=== PATIENT | female | born 1995 | race Caucasian/White ===

== ENCOUNTER 2020-05-15 13:33 | Emergency (ER) | payer MEDICAID, OTHER ==
[2020-05-15] MEDS ORDERED: Metoclopramide 10 MG/2 ML SDV IVPUSH ONE (14:45)
[2020-05-15] MEDS ORDERED: diphenhydrAMINE 50 MG/ML SDV IVPUSH ONE (14:45)
[2020-05-15] MEDS ORDERED: Dextrose 5%-Lactated Ringers 1,000 ML IV SCH (14:45)
--- NOTE | 2020-05-15 14:55 | EDM.PDOC ---
ED HPI GENERAL MEDICAL PROBLEM - General Chief Complaint: Gastrointestinal Problem Stated Complaint: ABD PAIN, VOMITING AND NAUSEA SENT BY [facility] Time Seen by Provider: 05/15/20 14:44 Source of Information: Reports: Patient History Limitations: Reports: No Limitations - History of Present Illness INITIAL COMMENTS - FREE TEXT/NARRATIVE: 24-year-old female presents to the ED for evaluation of intractable nausea and vomiting. Patient reports that she contracted COVID-19 illness around April 02. 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 She perceives that she caught it from one of the parents of students. Subsequently she has had a lot of headaches post Covid illness. She had severe nausea all day yesterday associated with a bad headache. She did keep down some food yesterday and some fluids. She had normal bowel movements for her with her Crohn's disease she usually has 6 stools per day usually first thing in the morning and with every meal and usually before bed. She started vomiting this morning primarily of recently eaten food and then biliary emesis. Patient took Phenergan dissolvable tablets all day yesterday for nausea relief. She went to the walk-in clinic at [place] this morning and was given Zofran sublingual which failed to control vomiting either. She was therefore sent to the ED for further evaluation and IV fluid replacement. Patient reports she has had no diarrhea stools today. There is some suggestion that she had serum ketones on her urine dipstick but I do not have confirmation of this. Labs done at the clinic revealed a mildly elevated white count at 12.3. Mild left shift with 8.6% neutrophils. Hemoglobin 15.4 with hematocrit of 45.4 and platelet count of 369,000. Chemistry revealed a normal glucose at 118 BUN of 10 and a creatinine of 0.93. BUN creatinine ratio was normal at 10.8. Sodium 141 with potassium of 4.1 chloride 105 with a bicarb of 23. Anion gap is minimally elevated at 17. Calcium is 10.1 mildly elevated. Total protein elevated at 8.8 likely due to hemoconcentration. Albumin fraction also elevated at 4.9 again likely due to hemoconcentration. Liver function normal. Due to her history of Crohn's disease she had a 2 view abdomen performed in radiology reports normal bowel gas pattern with no signs of obstruction. She states she had some chills yesterday but no definite fever. Denies cough or sputum production. She thought there might have been a small amount of blood and mucus that she vomited this morning x1. Continue to have dry heaves well seen in the ED. Onset: Sudden Onset Date: 05/14/20 (Ports she was nauseated since she woke up yesterday morning. She states nothing that she ate on precipitated any illness.) Onset Time: 10:30 (Has been vomiting nonstop since 1030 hrs. this morning.) Duration: Hour(s):, Getting Worse Location: Reports: Abdomen (Intractable nausea and vomiting of bilious emesis.) Quality: Reports: Other (Mild periumbilical cramping pain) Severity: Moderate Improves with: Reports: None (Zofran sublingual as well as dissolvable Phenergan tablets did not help with nausea vomiting today.) Worsens with: Reports: Other (To eat or drink anything.) Context: Reports: Other (Spontaneous occurrence). Denies: Activity, Exercise, Lifting, Sick Contact, Trauma Associated Symptoms: Reports: Fever/Chills ( believes are migraine type headaches since she had COVID-19 illness. She never had that before COVID-19 illness.), Headaches ( Chills but no definite fever.), Loss of Appetite, Malaise, Nausea/Vomiting (See history of present illness), Other (Been getting a lot of severe headaches which she). Denies: Confusion, Chest Pain, Cough, cough w sputum Treatments GILL BOX FIXER: Reports: Other (see below) (Duarte 4 mg sublingual.) Abdomen Pain Score (Numeric/FACES): 5 - Related Data Allergies Allergy/AdvReac Type Severity Reaction Status Date / Time bacitracin Allergy Cannot Verified 05/15/20 13:47 [From Neosporin Remember ([id number])] Latex, Natural Rubber Allergy Hives Verified 05/15/20 13:47 neomycin Allergy Cannot Verified 05/15/20 13:47 [From Neosporin Remember ([id number])] polymyxin B Allergy Cannot Verified 05/15/20 13:47 [From Neosporin Remember ([id number])] Home Meds: Home Meds Albuterol Sulfate [Albuterol Sulfate Hfa] 2 puff INH ASDIRECTED PRN 05/15/20 [History] Ondansetron [Zofran] 4 mg BUCCAL Q6H PRN #10 tab 05/15/20 [Rx] Promethazine [Phenergan] 25 mg PO ASDIRECTED 05/15/20 [History] Spironolactone [Aldactone] 50 mg PO DAILY 05/15/20 [History] metFORMIN [Glucophage XR] 250 mg PO BID 05/15/20 [History] Past Medical History HEENT History: Reports: Impaired Vision Respiratory History: Reports: Asthma Gastrointestinal History: Reports: Chronic Diarrhea (And usually 2 or 3 bowel months first thing in the morning and sometimes just before bed culminating in about 6 bowel movements a day without blood. Stools are almost always diarrhea or pasty. Sometimes just mucousy. Can [facility] to Crohn's disease diagnosed at age 9. She was treated with remittive medication up until age 16 and has been off medication since that time. Typically she has intestinal hurry with a bowel movement within 30 to 40 minutes of eating), Inflammatory Bowel Disease (Chronic disease diagnosed at age 9. She is not sure what part of her bowel has been affected but presumes terminal ileum. She is unsure if she has any disease in her colon. She has not had a colonoscopy since age 16. Is due to see a outbound telemarketing representative tomorrow in [place].) COATER BRAKE LININGS History: Reports: Polycystic Ovaries, Other (See Below) : 0 Other COATER BRAKE LININGS History: poly cystic ovarian syndrome--hirsutism. Been on Metformin and Aldactone for many years. 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 Denies: Fever HEENT: Reports: No Symptoms Respiratory: Reports: No Symptoms Cardiovascular: Reports: No Symptoms Endocrine: Reports: Fatigue GI/Abdominal: Reports: Abdominal Pain (Treatment periumbilical cramping pain.), Diarrhea (Chronic diarrhea secondary to Crohn's disease usually on average 6 bowel movements per day of semiformed stool to diarrhea stool. Intestinal hurry usually has a bowel movement within 30 to 40 minutes of eating the meal. She is also lactose intolerant.), Nausea, Vomiting (Intractable nausea and vomiting since this morning. Nausea all day yesterday preceded vomiting episode.) : Reports: Other (Urine is dark in color.) Musculoskeletal: Reports: No Symptoms Skin: Reports: No Symptoms Neurological: Reports: Dizziness, Headache (Little lightheaded upon standing. Has been getting a lot of migraine type headaches since COVID-19 illness April 02. Previously had no previous history of migraine headaches.) Psychiatric: Reports: No Symptoms Hematologic/Lymphatic: Reports: No Symptoms Immunologic: Reports: No Symptoms ED EXAM, GI/ABD - Physical Exam Exam: See Below Exam Limited By: No Limitations General Appearance: Alert, WD/WN, Other (Recurrent dry heaving well seen in the ED.) Eyes: Bilateral: Normal Appearance (No scleral icterus or blepharal pallor evident.) Throat/Mouth: Other (Tongue is mildly dry.) Head: Atraumatic, Normocephalic Neck: Normal Inspection, Supple, Non-Tender, Full Range of Motion. No: Lymphadenopathy (L), Lymphadenopathy (R), Thyromegaly Respiratory/Chest: No Respiratory Distress, Lungs Clear, Normal Breath Sounds, No Accessory Muscle Use Cardiovascular: Normal Peripheral Pulses, Regular Rate, Rhythm, No Edema, No Gallop, No Murmur, No Rub GI/Abdominal Exam: Soft, No Organomegaly, No Abnormal Bruit, No Mass, Pelvis Stable, Tender (Mild tenderness in the epigastrium only presumably from vomiting. No peritoneal signs.), Abnormal Bowel Sounds (Very few bowel sounds appreciated on abdominal examination.). No: Guarding, Rigid, Rebound Back Exam: Normal Inspection, Full Range of Motion. No: CVA Tenderness (L), CVA Tenderness (R) Extremities: Normal Inspection, Normal Range of Motion, Non-Tender, No Pedal Edema Neurological: Alert, Oriented, CN II-XII Intact, Normal Cognition Psychiatric: Normal Affect, Normal Mood Skin Exam: Warm, Dry, Intact, Normal Color, No Rash Course - Vital Signs Last Recorded V/S: Last Vital Signs Temp 36.3 C 05/15/20 18:05 Pulse 94 05/15/20 18:05 Resp 18 05/15/20 18:05 BP 117/78 05/15/20 18:05 Pulse Ox 99 05/15/20 18:05 - Orders/Labs/Meds Orders: 24-year-old female with history of chronic Crohn's disease diagnosed age 9 presents to the ED due to nausea all day yesterday with intractable nausea and vomiting developing this morning. She took a lot of Phenergan dissolvable tablets yesterday for nausea relief. She did keep down some food yesterday. Nothing is stay down today. She believes there might have been a small amount of blood and mucus that she had with one of her indices this morning otherwise they were bilious. She has not had any bowel movements today which is atypical for her as usually she has 2 or 3 loose stools every morning due to Crohn's disease. No blood per rectum. No history of abdominal or perianal fistula development. She claims she had some chills. She was worked up at the [facility] walk-in clinic and had a slightly elevated white count with a mild minimal left shift. Electrolytes were normal. Anion gap was slightly elevated at 17. Plan she will be given IV fluids D5 Ringer's lactate at open. Reglan 10 mg IV with Benadryl 25 mg IV to prevent dystonic reaction. I will have further labs done a CRP, lipase, serum ketones. Labs: Laboratory Tests 05/15/20 05/15/20 05/15/20 Range/Units 14:10 14:10 14:10 D-Dimer, Quantitative 0.34 (0.19-0.50) mg/L Magnesium 1.9 (1.8-2.4) mg/dl Ferritin 100 (8-252) ng/ml C-Reactive Protein 0.7 (<1.0) mg/dL Lipase 78 (73-393) U/L HCG, Qual (NEGATIVE) Urine Color (Yellow) Urine Appearance (Clear) Urine pH (5.0-8.0) Ur Specific [place] (1.005-1.030) Urine Protein (Negative) Urine Glucose (UA) (Negative) Urine Ketones (Negative) Urine Occult Blood (Negative) Urine Nitrite (Negative) Urine Bilirubin (Negative) Urine Urobilinogen (0.2-1.0) Ur Leukocyte Esterase (Negative) Urine RBC (0-5) /hpf Urine WBC (0-5) /hpf Ur Squamous Epith Cells (0-5) /hpf Urine Bacteria (FEW) /hpf Urine Mucus (FEW) /hpf Ketones (0.0-0.3) mM 05/15/20 05/15/20 05/15/20 Range/Units 14:10 14:10 16:06 D-Dimer, Quantitative (0.19-0.50) mg/L Magnesium (1.8-2.4) mg/dl Ferritin (8-252) ng/ml C-Reactive Protein (<1.0) mg/dL Lipase (73-393) U/L HCG, Qual Negative (NEGATIVE) Urine Color Yellow (Yellow) Urine Appearance Clear (Clear) Urine pH 6.0 (5.0-8.0) Ur Specific [place] 1.015 (1.005-1.030) Urine Protein Negative (Negative) Urine Glucose (UA) Negative (Negative) Urine Ketones Negative (Negative) Urine Occult Blood Negative (Negative) Urine Nitrite Negative (Negative) Urine Bilirubin Negative (Negative) Urine Urobilinogen 0.2 (0.2-1.0) Ur Leukocyte Esterase 1+ H (Negative) Urine RBC 0-5 (0-5) /hpf Urine WBC 0-5 (0-5) /hpf Ur Squamous Epith Cells 0-5 (0-5) /hpf Urine Bacteria Moderate H (FEW) /hpf Urine Mucus Few (FEW) /hpf Ketones 0.30 (0.0-0.3) mM Meds: Medications Discontinued Medications Generic Name Dose Route Start Last Admin Trade Name Freq PRN Reason Stop Dose Admin Diphenhydramine HCl 25 mg 05/15/20 14:45 05/15/20 15:10 Benadryl IVPUSH 05/15/20 14:46 25 mg ONETIME ONE Administration Dextrose/Lactated Ringer's 1,000 mls @ 999 mls/hr 05/15/20 14:45 05/15/20 15:12 Dextrose 5%-Lactated Ringers IV 999 mls/hr ASDIRECTED KIRA Administration Metoclopramide HCl 10 mg 05/15/20 14:45 05/15/20 15:07 Reglan IVPUSH 05/15/20 14:46 10 mg ONETIME ONE Administration - Radiology Interpretation Free Text/Narrative:: 24-year-old female presents to the ED at the request of [facility] walk-in clinic physician. She presented there with a history of diffuse persistent nausea all day yesterday controlled with sublingual Phenergan tablets. However this morning in spite of taking Phenergan sublingual and Zofran at the clinic she had intractable nausea and vomiting for over 4 hours. She was therefore sent to the ED for further evaluation and management. She has a history of Crohn's disease with no recent GI follow-up. She is scheduled for gastroenterology follow-up tomorrow in [place]. She is post COVID-19 nonetheless April 02. - Re-Assessments/Exams Free Text/Narrative Re-Assessment/Exam: 05/15/20 15:42 D-dimer is normal at 0.34. Magnesium normal at 1.9 C-reactive protein 0.7 .Lipase is normal at 78.Serum Ferritin is 100. 05/15/20 16:54 Ketones came back at upper limits of normal at 0.30. D-dimer is 0.34. 05/15/20 17:34 Patient has been tolerating ice water with no further nausea or vomiting. She will therefore be discharged to home. She has Phenergan dissolvable tablets at home. I will send her home with Zofran 4 mg sublingual's as well to be used if needed for further nausea or vomiting. It appears that she has a viral gastritis. Departure - Departure Time of Disposition: 17:34 Disposition: Home, Self-Care 01 Condition: Fair Clinical Impression: Nausea and vomiting in adult, Viral gastritis - Discharge Information *PRESCRIPTION DRUG MONITORING PROGRAM REVIEWED*: Not Applicable *COPY OF PRESCRIPTION DRUG MONITORING REPORT IN PATIENT GERMAINE: Not Applicable Prescriptions: Ondansetron [Zofran] 4 mg BUCCAL Q6H PRN #10 tab PRN Reason: nausea or vomiting Instructions: Nausea and Vomiting, Adult Referrals: Rashad Botello MD [Primary Care Provider] - Forms: ED Department Discharge Additional Instructions: Evaluation in the emergency room today in regards to nausea that started yesterday but was kept under control with Phenergan sublingual tablets. Unfortunately breakthrough nausea and vomiting occurred this morning and failed to respond to sublingual Phenergan or Zofran. Evaluation in the emergency room does not show any problems related to COVID-19 illness that you had in March. Certainly no signs of blood clots in the lungs or evidence of pancreatitis to cause nausea vomiting. You received a liter of IV fluids to provide rehydration and medication Reglan 10 mg IV. Suggest continued use of Phenergan dissolvable tablets 25 mg sublingual every 6 hours for nausea relief or Zofran 4 mg every 4 hours as needed for nausea relief. You should not take both at the same time as they can cause something called a dystonic reaction which makes you feel very restless and uneasy. If this occurred Benadryl 50 mg by mouth would take away that side effect. Return to medical care if nausea vomiting continues over the next 12 hours or you fail to improve. Sepsis Event Note (ED) - Evaluation Sepsis Screening Result: No Definite Risk - Focused Exam Vital Signs: Vital Signs Temp Pulse Resp BP Pulse Ox 05/15/20 18:05 36.3 C 94 18 117/78 99 05/15/20 13:51 36.7 C 113 H 13 134/97 H 98
== END 2020-05-15 18:18 | disposition home or self-care (01) ==
LOC: JD.ED 13:33
DX: A08.4 Viral intestinal infection, unspecified (principal); R11.2 Nausea with vomiting, unspecified; Z88.8 Allergy status to other drugs, medicaments and biological substances; Z91.040 Latex allergy status
CPT/HCPCS: 36415; 81001; 82009; 82728; 83690; 83735; 84703; 85379; 86140; 96374; 96375; 99284; J1200; J2765; J7121

== ENCOUNTER 2020-09-08 01:14 | Emergency (ER) | payer OTHER ==
[2020-09-08] MEDS ORDERED: Albuterol/Ipratropium 3.0-0.5 MG/3 ML Neb Soln NEB ONE (01:34)
[2020-09-08] MEDS ORDERED: predniSONE 20 MG Tab PO ONE (01:34)
--- NOTE | 2020-09-08 02:12 | EDM.PDOC ---
ED HPI GENERAL MEDICAL PROBLEM - General Chief Complaint: Respiratory Problem Stated Complaint: [facility] Time Seen by Provider: 09/08/20 01:21 Source of Information: Reports: Patient, EMS History Limitations: Reports: No Limitations - History of Present Illness INITIAL COMMENTS - FREE TEXT/NARRATIVE: The patient presents by [facility] for an asthma attack. She started having one at about 10pm tonight. She tried her albuterol inhaler a few times but it did not help. EMS gave her a treatment and she was doing better. She does not smoke. She has no fever or chills. She does have a cough. She has no chest miguel, abdominal pain, nausea or vomiting. Onset: Gradual Duration: Hour(s): Severity: Moderate Improves with: Reports: None Worsens with: Reports: None Associated Symptoms: Reports: Cough, Shortness of Breath. Denies: Chest Pain, Fever/Chills, Headaches, Nausea/Vomiting Lower Back Pain Score (Numeric/FACES): 5 - Related Data Allergies Allergy/AdvReac Type Severity Reaction Status Date / Time bacitracin Allergy Severe Cannot Verified 09/08/20 01:24 [From Neosporin Remember ([id number])] Latex, Natural Rubber Allergy Severe Hives Verified 09/08/20 01:24 neomycin Allergy Severe Cannot Verified 09/08/20 01:24 [From Neosporin Remember ([id number])] polymyxin B Allergy Severe Cannot Verified 09/08/20 01:24 [From Neosporin Remember ([id number])] Home Meds: Home Meds Albuterol Sulfate [Albuterol Sulfate Hfa] 2 puff INH ASDIRECTED PRN 05/15/20 [History] Ondansetron [Zofran] 4 mg BUCCAL Q6H PRN #10 tab 05/15/20 [Rx] Promethazine [Phenergan] 25 mg PO ASDIRECTED 05/15/20 [History] Spironolactone [Aldactone] 50 mg PO DAILY 05/15/20 [History] predniSONE [Prednisone] 40 mg PO DAILY #10 tablet 09/08/20 [Rx] Past Medical History HEENT History: Reports: Impaired Vision Respiratory History: Reports: Asthma Gastrointestinal History: Reports: Chronic Diarrhea, Inflammatory Bowel Disease CLINICAL REHAB LIAISON History: Reports: Polycystic Ovaries, Other (See Below) Other CLINICAL REHAB LIAISON History: poly cystic ovarian syndrome--hirsutism. Been on Metformin and Aldactone for many years. 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.) ED ROS GENERAL - Review of Systems Review Of Systems: See Below Constitutional: Reports: No Symptoms HEENT: Reports: No Symptoms Respiratory: Reports: Shortness of Breath, Cough Cardiovascular: Reports: No Symptoms Endocrine: Reports: No Symptoms GI/Abdominal: Reports: No Symptoms : Reports: No Symptoms Musculoskeletal: Reports: No Symptoms ED EXAM, GENERAL - Physical Exam Exam: See Below Exam Limited By: No Limitations General Appearance: Alert, No Apparent Distress Ears: Normal External Exam Nose: Normal Inspection Head: Atraumatic, Normocephalic Neck: Normal Inspection Respiratory/Chest: No Respiratory Distress, Decreased Breath Sounds, Wheezing Cardiovascular: Regular Rate, Rhythm, No Edema, No Murmur GI/Abdominal: Soft, Non-Tender, No Organomegaly, No Mass Back Exam: Normal Inspection Course - Vital Signs Last Recorded V/S: Last Vital Signs Temp 98.6 F 09/08/20 01:18 Pulse 129 H 09/08/20 01:18 Resp 22 H 09/08/20 01:18 BP 127/79 09/08/20 01:18 Pulse Ox 99 09/08/20 01:44 - Orders/Labs/Meds Orders: Active Orders 24 hr Category Date Time Status RT Aerosol Therapy [RC] ASDIRECTED Care 09/08/20 01:34 Active Meds: Medications Discontinued Medications Generic Name Dose Route Start Last Admin Trade Name Freq PRN Reason Stop Dose Admin Albuterol/Ipratropium 3 ml 09/08/20 01:34 09/08/20 01:42 Albuterol/Ipratropium 3.0-0.5 Mg/3 Ml Neb Soln NEB 09/08/20 01:35 3 ml ONETIME ONE Administration Prednisone 40 mg 09/08/20 01:34 09/08/20 01:42 Prednisone 20 Mg Tab PO 09/08/20 01:35 40 mg ONETIME ONE Administration - Re-Assessments/Exams Free Text/Narrative Re-Assessment/Exam: 09/08/20 02:12 I ordered a duoneb and prednisone 40mg by mouth. 09/08/20 02:18 She is moving air better. Her oxygen saturations are 98%. I feel she can go home on some prednisone. Departure - Departure Time of Disposition: 02:20 Disposition: Home, Self-Care 01 Condition: Good Clinical Impression: Exacerbation of asthma Qualifiers: Asthma severity: mild Asthma persistence: intermittent Qualified Code(s): J45.21 - Mild intermittent asthma with (acute) exacerbation - Discharge Information *PRESCRIPTION DRUG MONITORING PROGRAM REVIEWED*: Not Applicable *COPY OF PRESCRIPTION DRUG MONITORING REPORT IN PATIENT GERMAINE: Not Applicable Prescriptions: predniSONE [Prednisone] 40 mg PO DAILY #10 tablet Referrals: PCP,None [Primary Care Provider] - Forms: ED Department Discharge Additional Instructions: Take the prednisone 40mg daily for 5 days. Use your inhaler as needed for any shortness of breath. Follow up with your provider. Please return if you are worse. Sepsis Event Note (ED) - Evaluation Sepsis Screening Result: No Definite Risk - Focused Exam Vital Signs: Vital Signs Temp Pulse Resp BP Pulse Ox Pulse Ox 09/08/20 01:44 99 09/08/20 01:18 98.6 F 129 H 22 H 127/79 97 - My Orders Last 24 Hours: My Active Orders 09/08/20 01:34 RT Aerosol Therapy [RC] ASDIRECTED - Assessment/Plan Last 24 Hours: My Active Orders 09/08/20 01:34 RT Aerosol Therapy [RC] ASDIRECTED
== END 2020-09-08 02:37 | disposition home or self-care (01) ==
LOC: JD.ED 01:14
DX: J45.21 Mild intermittent asthma with (acute) exacerbation (principal); Z88.1 Allergy status to other antibiotic agents; Z91.040 Latex allergy status; Z79.899 Other long term (current) drug therapy
CPT/HCPCS: 94640; 99285; J7512; 99283; J7620-GY